=== PATIENT | male | born 1960 | race Caucasian/White ===

== ENCOUNTER → 2017-03-05 | Outpatient (CLI) | payer OTHER ==
[2017-03-05 08:03] LABS: ADD MAN DIFF? NO
[2017-03-05 08:18] LABS: BASO % 1 % (0-3); EOS # 0.1 x10^3/uL (0.0-0.7); EOS % 2 % (0-3); HEMATOCRIT 46.9 % (39.0-53.0); HEMOGLOBIN 16.1 g/dL (13.0-17.5); LYMPH # 1.9 x10^3/uL (1.0-4.8); LYMPH % 40 % (24-48); MEAN CORPUSCULAR HEMOGLOBIN 32 pg (25-35); MEAN CORPUSCULAR HGB CONC 34 g/dL (31-37); MEAN CORPUSCULAR VOLUME 92 fL (79-100); MONO # 0.4 x10^3/uL (0.0-1.1); MONO % 9 % (0-9); NEUT # 2.3 x10^3uL (1.8-7.7); NEUT % 49 % (31-73); PLATELET COUNT 216 x10^3/uL (140-400); RED BLOOD COUNT 5.08 x10^6/uL (4.30-5.70); RED CELL DISTRIBUTION WIDTH 13.1 % (11.5-14.5); WHITE BLOOD COUNT 4.8 x10^3/uL (4.0-11.0)
[2017-03-05 08:25] LABS: BILIRUBIN,URINE NEGATIVE (NEG); CLARITY,URINE CLEAR; COLOR,URINE YELLOW; GLUCOSE,URINE NEGATIVE (NEG); NITRITE,URINE NEGATIVE (NEG); PROTEIN,URINE NEGATIVE (NEG-TRACE); UROBILINOGEN,URINE 0.2 mg/dL (0.2 mg/dL)
[2017-03-05 08:29] LABS: ALK PHOS 86 U/L (46-116); ALT (SGPT) 31 U/L (16-63); ANION GAP 7 (6-14); AST (SGOT) 17 U/L (15-37); BLOOD UREA NITROGEN 15 mg/dL (8-26); BUN/CREATININE RATIO 15 (6-20); CALCIUM 8.8 mg/dL (8.5-10.1); CARBON DIOXIDE 28 mmol/L (21-32); CHLORIDE 100 mmol/L (98-107); CHOLESTEROL 249 mg/dL (0-200); GFR 77.9; GLUCOSE 107 mg/dL (70-99); HDLC 53 mg/dL (40-60); LDLC 175 mg/dL (0-100); NON-HDL CHOLESTEROL 196 mg/dL (0-129); POTASSIUM 4.2 mmol/L (3.5-5.1); SODIUM 135 mmol/L (136-145); TOTAL BILIRUBIN 0.6 mg/dL (0.2-1.0); TOTAL PROTEIN 8.2 g/dL (6.4-8.2); TRIGLYCERIDES 106 mg/dL (0-150); VLDLC 21 mg/dL (0-40)
[2017-03-05 08:31] LABS: CHOLESTEROL/HDL RATIO 4.7
[2017-03-05 08:50] LABS: FREE T4 0.83 ng/dL (0.76-1.46)
[2017-03-05 08:50] LABS: THYROID STIM HORMONE (TSH) 5.084 uIU/mL (0.358-3.74)
[2017-03-05 08:55] LABS: SQUAMOUS EPITHELIAL CELL,UR OCC /LPF
[2017-03-05 08:56] LABS: BACTERIA,URINE 0 /HPF (0-FEW); RBC,URINE 0 /HPF (0-2); WBC,URINE 0 /HPF (0-4)
[2017-03-05 09:11] LABS: VITAMIN-B12 383 pg/mL (247-911)
[2017-03-05 09:17] LABS: SEDIMENTATION RATE 5 (0-15)
[2017-03-05 09:25] LABS: PROSTATE SPECIFIC ANTIGEN 0.53 ng/mL (0.00-4.00)
[2017-03-05 11:49] LABS: GLUCOSE 52 mg/dL (70-99)
[2017-03-05 14:23] LABS: T3 TOTAL 124 ng/dL (71-180); THYROXINE 6.4 ug/dL (4.5-12.0)
[2017-03-06 07:33] LABS: HEMOGLOBIN A1C 5.3 % (4.8-5.6)
[2017-03-07 17:19] LABS: ANA INTERP Negative (.)
[2017-03-08 13:25] LABS: % FREE TESTOSTERONE 2.39 % (1.50-4.20); TESTOSTERONE FREE 9.15 ng/dL (5.00-21.00); TESTOSTERONE TOTAL 383 ng/dL (264-916)
== END | disposition home or self-care (01) ==
LOC: LAB 07:47
DX: Z00.01 Encounter for general adult medical examination with abnormal findings (principal); Z12.5 Encounter for screening for malignant neoplasm of prostate; R42 Dizziness and giddiness; R23.2 Flushing
CPT/HCPCS: 36415; 80053; 80061; 81001; 82306; 82533; 82607; 82947; 82950; 83036; 84402; 84403; 84436; 84439; 84443; 84480; 84481; 85025; 85651; 86038; G0103

== ENCOUNTER → 2017-05-16 | Outpatient (CLI) | payer OTHER ==
[~2017-05-16] MED LIST: SODIUM PHOSPHATES 19/7GM 133 ML ENEMA.
== END | disposition home or self-care (01) ==
LOC: RAD 07:44
DX: M25.562 Pain in left knee (principal)
CPT/HCPCS: 73562

== ENCOUNTER 2017-05-22 17:10 | Emergency (ER) | payer OTHER | END 2017-05-22 18:51 | disposition home or self-care (01) | LOC: ER 17:10 | DX: S00.83XA Contusion of other part of head, initial encounter (principal); M54.2 Cervicalgia; I10 Essential (primary) hypertension; Z88.0 Allergy status to penicillin; V59.40XA Driver of pick-up truck or van injured in collision with unspecified motor vehicles in traffic accident, initial encounter; Y93.I9 Activity, other involving external motion; Y92.410 Unspecified street and highway as the place of occurrence of the external cause | CPT/HCPCS: 70450; 72125; 99284-25 ==

== ENCOUNTER → 2017-07-23 | Outpatient (CLI) | payer OTHER ==
[2017-07-23 08:14] LABS: ALBUMIN 3.6 g/dL (3.4-5.0); ALBUMIN/GLOBULIN RATIO 0.9 (1.0-1.7); ALK PHOS 86 U/L (46-116); ALT (SGPT) 22 U/L (16-63); ANION GAP 8 (6-14); AST (SGOT) 14 U/L (15-37); BLOOD UREA NITROGEN 16 mg/dL (8-26); BUN/CREATININE RATIO 18 (6-20); CALCIUM 8.9 mg/dL (8.5-10.1); CARBON DIOXIDE 25 mmol/L (21-32); CHLORIDE 105 mmol/L (98-107); CHOLESTEROL 197 mg/dL (0-200); CREATININE 0.9 mg/dL (0.7-1.3); GFR 87.6; GLUCOSE 101 mg/dL (70-99); HDLC 42 mg/dL (40-60); LDLC 126 mg/dL (0-100); NON-HDL CHOLESTEROL 155 mg/dL (0-129); SODIUM 138 mmol/L (136-145); TOTAL BILIRUBIN 0.6 mg/dL (0.2-1.0); TOTAL PROTEIN 7.4 g/dL (6.4-8.2); TRIGLYCERIDES 146 mg/dL (0-150); VLDLC 29 mg/dL (0-40)
[2017-07-23 08:21] LABS: CHOLESTEROL/HDL RATIO 4.7
[2017-07-23 17:52] LABS: FREE T4 0.77 ng/dL (0.76-1.46)
[2017-07-23 17:52] LABS: THYROID STIM HORMONE (TSH) 4.805 uIU/mL (0.358-3.74)
[2017-07-24 02:19] LABS: T3 TOTAL 101 ng/dL (71-180)
[2017-07-24 02:19] LABS: THYROXINE 5.5 ug/dL (4.5-12.0)
== END | disposition home or self-care (01) ==
LOC: LAB 07:19
DX: E03.9 Hypothyroidism, unspecified (principal); E55.9 Vitamin D deficiency, unspecified; E78.5 Hyperlipidemia, unspecified; I10 Essential (primary) hypertension
CPT/HCPCS: 36415; 80053; 80061; 82306; 84436; 84439; 84443; 84480; 84481

== ENCOUNTER → 2018-10-31 | Outpatient (CLI) | payer OTHER ==
[2017-05-22 17:35] VITALS: BP 135/75
[~2018-10-31] MED LIST changes: +CALC200T23 PO; +PANT40TA77 PO; -SODIUM PHOSPHATES 19/7GM 133 ML ENEMA.
[2018-10-31 10:00] LABS: BASO % 1 % (0-3); EOS # 0.1 x10^3/uL (0.0-0.7); EOS % 2 % (0-3); HEMATOCRIT 43.5 % (39.0-53.0); HEMOGLOBIN 15.1 g/dL (13.0-17.5); LYMPH # 1.8 x10^3/uL (1.0-4.8); LYMPH % 39 % (24-48); MEAN CORPUSCULAR HEMOGLOBIN 33 pg (25-35); MEAN CORPUSCULAR HGB CONC 35 g/dL (31-37); MEAN CORPUSCULAR VOLUME 94 fL (79-100); MONO # 0.4 x10^3/uL (0.0-1.1); MONO % 9 % (0-9); NEUT # 2.3 x10^3/uL (1.8-7.7); NEUT % 49 % (31-73); PLATELET COUNT 206 x10^3/uL (140-400); RED BLOOD COUNT 4.64 x10^6/uL (4.30-5.70); RED CELL DISTRIBUTION WIDTH 13.3 % (11.5-14.5); WHITE BLOOD COUNT 4.6 x10^3/uL (4.0-11.0)
[2018-10-31 10:10] LABS: ALBUMIN 3.8 g/dL (3.4-5.0); ALBUMIN/GLOBULIN RATIO 1.1 (1.0-1.7); CALCIUM 8.9 mg/dL (8.5-10.1); GFR 77.3; POTASSIUM 4.9 mmol/L (3.5-5.1); TOTAL BILIRUBIN 0.4 mg/dL (0.2-1.0); TOTAL PROTEIN 7.4 g/dL (6.4-8.2)
[2018-10-31 10:11] LABS: CHOLESTEROL/HDL RATIO 5.2
[2018-10-31 17:10] LABS: T3 TOTAL 119 ng/dL (71-180)
[2018-11-01 00:11] LABS: HEMOGLOBIN A1C 5.6 % (4.8-5.6)
== END | disposition home or self-care (01) ==
LOC: LAB 09:10
PROVIDERS: ATTEND Nurse Practitioner
DX: Z13.1 Encounter for screening for diabetes mellitus (principal); E78.5 Hyperlipidemia, unspecified; E30.9 Disorder of puberty, unspecified; I10 Essential (primary) hypertension; W57.XXXA Bitten or stung by nonvenomous insect and other nonvenomous arthropods, initial encounter; Y93.89 Activity, other specified; Y92.89 Other specified places as the place of occurrence of the external cause; Y99.8 Other external cause status
CPT/HCPCS: 36415; 80053; 80061; 83036; 84436; 84443; 84480; 85025; 86617; 86618

== ENCOUNTER → 2019-02-19 | Outpatient (CLI) | payer OTHER ==
[2017-05-22 17:35] VITALS: BP 135/75
[2019-02-19 10:36] LABS: BASO % 1 % (0-3); EOS # 0.1 x10^3/uL (0.0-0.7); EOS % 2 % (0-3); HEMATOCRIT 44.2 % (39.0-53.0); HEMOGLOBIN 15.1 g/dL (13.0-17.5); LYMPH # 1.8 x10^3/uL (1.0-4.8); LYMPH % 37 % (24-48); MEAN CORPUSCULAR HEMOGLOBIN 31 pg (25-35); MEAN CORPUSCULAR HGB CONC 34 g/dL (31-37); MEAN CORPUSCULAR VOLUME 91 fL (79-100); MONO # 0.4 x10^3/uL (0.0-1.1); MONO % 9 % (0-9); NEUT # 2.6 x10^3/uL (1.8-7.7); NEUT % 52 % (31-73); PLATELET COUNT 244 x10^3/uL (140-400); RED BLOOD COUNT 4.85 x10^6/uL (4.30-5.70); RED CELL DISTRIBUTION WIDTH 12.9 % (11.5-14.5)
[2019-02-19 10:48] LABS: ALBUMIN 3.8 g/dL (3.4-5.0); ALBUMIN/GLOBULIN RATIO 1.1 (1.0-1.7); CALCIUM 8.9 mg/dL (8.5-10.1); GFR 77.3; POTASSIUM 4.2 mmol/L (3.5-5.1); TOTAL BILIRUBIN 0.5 mg/dL (0.2-1.0); TOTAL PROTEIN 7.3 g/dL (6.4-8.2)
[2019-02-19 10:49] LABS: CHOLESTEROL/HDL RATIO 5.5
[2019-02-19 10:58] LABS: FREE T4 0.91 ng/dL (0.76-1.46); THYROID STIM HORMONE (TSH) 3.239 uIU/mL (0.358-3.74)
--- NOTE | 2019-02-19 16:13 | RAD ---
BRAIN W/O CONTRAST History: Headache. Technique: Multiplanar, multi sequential MR imaging was performed of the brain without contrast. Comparison: CT May 22, 2017 brain MRI August 06, 2015 Findings: No acute infarct. No intracranial hemorrhage. No mass effect. No hydrocephalus. Mild foci of T2/FLAIR hyperintensities within the hemispheric white matter including the left cerebellum, unchanged compared to prior. Imaged orbits are unremarkable. Imaged paranasal sinuses and mastoid air cells are clear. Impression: 1. No acute intracranial abnormality. 2. Unchanged mild nonspecific cerebral hemispheric white matter signal abnormalities including the left cerebellum. Differential considerations include migraine headaches, demyelinating disease, sequelae of chronic microvascular ischemia, or vasculitis. Electronically signed by: Evens Pierre DO (02/19/2019 4:10 PM) [facility] [id number]
--- NOTE | 2019-02-19 16:19 | RAD ---
CERVICAL SPINE WO CONTRAST History: Neck pain Technique: Multiplanar, multi sequential noncontrast MR imaging was performed of the cervical spine. Comparison: CT May 22, 2017 Findings: Normal vertebral body height and alignment. No fracture. No pathologic signal abnormality within the cervical spinal cord. T2/STIR hyperintense signal around the within the left cerebellum see dedicated brain MRI for further details. C2-C3 Small posterior disc osteophyte complex. Indention of ventral thecal sac. No canal narrowing. Uncovertebral and facet arthropathy. No neuroforaminal narrowing. C3-C4: Disc osteophyte complex. Partial effacement of ventral CSF space. Dorsal CSF spaces preserved. Minimal canal narrowing. Mild cord flattening. Uncovertebral and facet arthropathy. Moderate right and mild left neuroforaminal narrowing. C4-C5: Posterior disc osteophyte complex. No canal narrowing. Minimal cord flattening. Uncovertebral and facet arthropathy. Mild right neuroforaminal narrowing. No left neural foraminal narrowing. C5-C6: Posterior disc osteophyte complex. Partial effacement of ventral CSF space. Dorsal CSF spaces preserved. Minimal cord flattening. Uncovertebral and facet arthropathy. Severe left and moderate right neuroforaminal narrowing. C6-C7: Disc osteophyte complex. No canal narrowing. Uncovertebral and facet arthropathy. Moderate left and mild right neuroforaminal narrowing. C7-T1: No canal or neuroforaminal narrowing. Facet arthropathy. Impression: 1. Moderate multilevel cervical spondylosis most prominent C3-C4 and C5-C6. 2. Multilevel neural foraminal narrowing most prominent C5-C6. Electronically signed by: Evens Pierre DO (02/19/2019 4:16 PM) [email or web address]
[2019-02-19 23:08] LABS: HEMOGLOBIN A1C 5.6 % (4.8-5.6)
[2019-02-28 08:48] LABS: BILIRUBIN,URINE NEGATIVE (NEG); CLARITY,URINE CLEAR; COLOR,URINE YELLOW; NITRITE,URINE NEGATIVE (NEG); PH,URINE 5.5; PROTEIN,URINE NEGATIVE (NEG-TRACE); UROBILINOGEN,URINE 0.2 mg/dL (0.2 mg/dL)
[2019-02-28 09:00] LABS: BACTERIA,URINE 0 /HPF (0-FEW); RBC,URINE 0 /HPF (0-2); WBC,URINE OCC /HPF (0-4)
== END | disposition home or self-care (01) ==
LOC: MRI 07:54
PROVIDERS: ATTEND Family Medicine
DX: Z00.00 Encounter for general adult medical examination without abnormal findings (principal); M47.812 Spondylosis without myelopathy or radiculopathy, cervical region; M12.88 Other specific arthropathies, not elsewhere classified, other specified site; M48.02 Spinal stenosis, cervical region; M25.78 Osteophyte, vertebrae; R90.82 White matter disease, unspecified; E03.9 Hypothyroidism, unspecified; I10 Essential (primary) hypertension; E55.9 Vitamin D deficiency, unspecified
CPT/HCPCS: 36415; 70551; 72141; 80053; 80061; 81001; 82306; 83036; 84153; 84439; 84443; 84480; 85025; 85651; G0103

== ENCOUNTER 2019-08-11 19:31 | Emergency (ER) | payer OTHER ==
[~2019-08-11] VITALS: Ht 175.3 cm; Wt 103.0 kg
[2019-08-11 20:11] LABS: BASO % 1 % (0-3); EOS # 0.1 x10^3/uL (0.0-0.7); EOS % 2 % (0-3); HEMATOCRIT 42.8 % (39.0-53.0); HEMOGLOBIN 15.2 g/dL (13.0-17.5); LYMPH # 2.2 x10^3/uL (1.0-4.8); LYMPH % 36 % (24-48); MEAN CORPUSCULAR HEMOGLOBIN 33 pg (25-35); MEAN CORPUSCULAR HGB CONC 36 g/dL (31-37); MEAN CORPUSCULAR VOLUME 91 fL (79-100); MONO # 0.4 x10^3/uL (0.0-1.1); MONO % 7 % (0-9); NEUT # 3.4 x10^3/uL (1.8-7.7); NEUT % 55 % (31-73); PLATELET COUNT 228 x10^3/uL (140-400); RED BLOOD COUNT 4.69 x10^6/uL (4.30-5.70); RED CELL DISTRIBUTION WIDTH 12.9 % (11.5-14.5); WHITE BLOOD COUNT 6.1 x10^3/uL (4.0-11.0)
[2019-08-11 20:21] LABS: PROTHROMBIN TIME PATIENT 12.2 SEC (11.7-14.0)
--- NOTE | 2019-08-11 20:23 | RAD ---
Study: CR CHEST PA LATERAL Indication: Midsternal pain for the past 3 months. Comparison: 01/18/2015 Findings: Similar configuration of the cardiomediastinal silhouette which is at the upper limits for normal in size. Unchanged melba. No pneumothorax or layering effusion. No confluent infiltrate. Mildly prominent interstitial markings have not significant changed. Impression: No acute radiographic abnormality of the chest. No significant change from 01/18/2015. Electronically signed by: SHERICE CLOUD MD (08/11/2019 8:20 PM) [id number]
[2019-08-11 20:29] LABS: CREATININE 1.2 mg/dL (0.7-1.3); GFR 62.4
[2019-08-11 20:32] LABS: ALBUMIN 3.6 g/dL (3.4-5.0); ALBUMIN/GLOBULIN RATIO 1.1 (1.0-1.7); TOTAL BILIRUBIN 0.3 mg/dL (0.2-1.0); TOTAL PROTEIN 6.9 g/dL (6.4-8.2)
[2019-08-11] MEDS ORDERED: SUCR1TAB35 PO (21:07)
[2019-08-11] MEDS ORDERED: FAMO-63 PO (21:07)
--- NOTE | 2019-08-11 21:07 | PHYS DOC ---
Past Medical History Past Medical History: Hypertension Past Surgical History: Other Additional Past Surgical Histo: right labrium repair Smoking Status: Former Smoker Alcohol Use: Heavy Drug Use: None General Adult EDM: Chief Complaint: GI PROBLEM HPI: HPI: Patient is a 59 year old male presents to the ED with a chief complaint of epigastric chest pain that is been present for the last 2 to 3 months. Patient states that he went to his PCP today and was told to come to the ER. Patient states that the pain is in the epigastric region with radiating up his left chest. Patient states that his last cardiac evaluation was a very long time ago. Review of Systems: Review of Systems: Constitutional: Denies fever or chills. [] Eyes: Denies change in visual acuity. [] HENT: Denies nasal congestion or sore throat. [] Respiratory: Denies cough or shortness of breath. [] Cardiovascular: Denies chest pain or edema. [] GI: Complains of epigastric abdominal tenderness. [] : Denies dysuria. [] Neurologic: Denies headache, focal weakness or sensory changes. [] Heart Score: HEART Score for Chest Pain: HEART Score for Chest Pain Response (Comments) Value History Slighlty/Non-Suspicious 0 ECG Normal 0 Age >45 - < 65 1 Risk Factors 1 or 2 Risk Factors 1 Troponin < Normal Limit 0 Total 2 Risk Factors: Risk Factors: DM, Current or recent (<one month) smoker, HTN, HLP, family history of CAD, obesity. Risk Scores: Score 0 - 3: 2.5% MACE over next 6 weeks - Discharge Home Score 4 - 6: 20.3% MACE over next 6 weeks - Admit for Clinical Observation Score 7 - 10: 72.7% MACE over next 6 weeks - Early Invasive Strategies Allergies: Allergies: Allergies Coded Allergies Type Severity Reaction Last Updated Verified Penicillins Allergy Intermediate hives and rash 01/18/15 Yes Physical Exam: PE: Constitutional: Well developed, well nourished, no acute distress, non-toxic appearance. [] HENT: Normocephalic, atraumatic Eyes: EOMI Neck: Normal range of motion, Supple Cardiovascular:Heart rate regular rhythm Lungs & Thorax: Bilateral breath sounds clear to auscultation [] Abdomen: Epigastric abdominal tenderness Extremities: No tenderness, ROM intact Neurologic: Alert and oriented X 3 Current Patient Data: Labs: Laboratory Tests Test 08/11/19 19:58 White Blood Count 6.1 x10^3/uL (4.0-11.0) Red Blood Count 4.69 x10^6/uL (4.30-5.70) Hemoglobin 15.2 g/dL (13.0-17.5) Hematocrit 42.8 % (39.0-53.0) Mean Corpuscular Volume 91 fL (79-100) Mean Corpuscular Hemoglobin 33 pg (25-35) Mean Corpuscular Hemoglobin Concent 36 g/dL (31-37) Red Cell Distribution Width 12.9 % (11.5-14.5) Platelet Count 228 x10^3/uL (140-400) Neutrophils (%) (Auto) 55 % (31-73) Lymphocytes (%) (Auto) 36 % (24-48) Monocytes (%) (Auto) 7 % (0-9) Eosinophils (%) (Auto) 2 % (0-3) Basophils (%) (Auto) 1 % (0-3) Neutrophils # (Auto) 3.4 x10^3/uL (1.8-7.7) Lymphocytes # (Auto) 2.2 x10^3/uL (1.0-4.8) Monocytes # (Auto) 0.4 x10^3/uL (0.0-1.1) Eosinophils # (Auto) 0.1 x10^3/uL (0.0-0.7) Basophils # (Auto) 0.0 x10^3/uL (0.0-0.2) Prothrombin Time 12.2 SEC (11.7-14.0) Prothrombin Time INR 0.9 (0.8-1.1) Sodium Level 138 mmol/L (136-145) Potassium Level 4.0 mmol/L (3.5-5.1) Chloride Level 101 mmol/L (98-107) Carbon Dioxide Level 29 mmol/L (21-32) Anion Gap 8 (6-14) Blood Urea Nitrogen 18 mg/dL (8-26) Creatinine 1.2 mg/dL (0.7-1.3) Estimated GFR (Cockcroft-Gault) 62.4 BUN/Creatinine Ratio 15 (6-20) Glucose Level 122 mg/dL (70-99) H Calcium Level 9.0 mg/dL (8.5-10.1) Total Bilirubin 0.3 mg/dL (0.2-1.0) Aspartate Amino Transferase (AST) 22 U/L (15-37) Alanine Aminotransferase (ALT) 35 U/L (16-63) Alkaline Phosphatase 85 U/L (46-116) Troponin I Quantitative < 0.017 ng/mL (0.000-0.055) Total Protein 6.9 g/dL (6.4-8.2) Albumin 3.6 g/dL (3.4-5.0) Albumin/Globulin Ratio 1.1 (1.0-1.7) Lipase 153 U/L (73-393) Laboratory Tests 08/11/19 19:58 Laboratory Tests 08/11/19 19:58 Vital Signs: Vital Signs Date Time Temp Pulse Resp B/P (MAP) Pulse Ox O2 Delivery O2 Flow Rate FiO2 08/11/19 19:50 98.6 75 16 126/70 (88) 96 Room Air 98.6 EKG: EKG: [EKG interpretation: 19: 49 on 08/11/2019 HR: 72 Sinus rhythm Regular intervals Normal axis Nonspecific ST changes No STEMI ] Radiology/Procedures: Radiology/Procedures: [] Impression: CXR Impression: No acute radiographic abnormality of the chest. No significant change from 01/18/2015. Course & Med Decision Making: Course & Med Decision Making Pertinent Labs and Imaging studies reviewed. (See chart for details) EKG does not show any acute changes. Labs are within normal limits. Troponin is negative. Chest x-ray does not show any acute changes. Do not need to repeat troponin as patient has had this pain for the last 2 months. Patient was discharged home on Pepcid and Carafate. Discussed results and plan of care with patient. Patient is instructed to follow up with PCP in one to 2 days. Appropriate discharge instructions given to patient to return to the ED or to seek immediate medical evaluation. Patient is instructed to return to the ED if symptoms worsen or if any concerns. Dragon Disclaimer: Dragon Disclaimer: This electronic medical record was generated, in whole or in part, using a voice recognition dictation system. Departure Departure Impression: Primary Impression: Chest pain Additional Impression: GERD (gastroesophageal reflux disease) Disposition: 01 HOME, SELF-CARE Condition: STABLE Referrals: RAUDEL PIEDRA (PCP) Patient Instructions: Chest Pain (Nonspecific), Gastroesophageal Reflux Disease, Adult Additional Instructions: Discussed results and plan of care with patient. Patient is instructed to follow up with PCP in one to 2 days. Appropriate discharge instructions given to patient to return to the ED or to seek immediate medical evaluation. Patient is instructed to return to the ED if symptoms worsen or if any concerns. Scripts Sucralfate (CARAFATE) 1 Gm Tablet 1 TAB PO BID for 30 Days, #60 TAB 0 Refills Prov: MINERVA LEMUS DO 08/11/19 Famotidine (PEPCID) 20 Mg Tablet 20 MG PO HS, #30 TAB Prov: MINERVA LEMUS DO 08/11/19 Justicifation of Admission Dx: Justifications for Admission: Justification of Admission Dx: MINERVA Penn DO Aug 11, 2019 21:07
[2019-08-11 21:30] VITALS: BP 139/75
--- NOTE | 2019-08-12 10:29 | EKG ---
[facility] [address] [place] [address] Test Date: 2019-08-11 Test Time: 19:49:32 Pat Name: SARA BOWIE Department: Room: Gender: M Legal Analyst: : 1960 Requested By: MINERVA LEMUS Order Number: [id number] [place] MD: Measurements Intervals [place] Rate: 72 P: 36 MO: 178 QRS: 23 QRSD: 98 T: 58 QT: 352 QTc: 387 Interpretive Statements SINUS RHYTHM NORMAL ECG RI6.02 No previous ECG available for comparison
== END 2019-08-11 21:35 | disposition home or self-care (01) ==
LOC: ER 19:31
DX: R07.89 Other chest pain (principal); K21.9 Gastro-esophageal reflux disease without esophagitis; I10 Essential (primary) hypertension; F10.20 Alcohol dependence, uncomplicated; Y90.9 Presence of alcohol in blood, level not specified; Z87.891 Personal history of nicotine dependence; Z88.0 Allergy status to penicillin
CPT/HCPCS: 36415; 71046; 80053; 83690; 84484; 85025; 85610; 93005; 99285-25

== ENCOUNTER → 2020-05-11 | Outpatient (CLI) | payer OTHER ==
[~2020-05-11] MED LIST changes: +FAMO-63 PO; +SUCR1TAB35 PO
[2020-05-11 11:38] LABS: BASO % 1 % (0-3); EOS # 0.1 x10^3/uL (0.0-0.7); EOS % 2 % (0-3); HEMATOCRIT 43.6 % (39.0-53.0); HEMOGLOBIN 15.1 g/dL (13.0-17.5); LYMPH # 2.2 x10^3/uL (1.0-4.8); LYMPH % 45 % (24-48); MEAN CORPUSCULAR HEMOGLOBIN 31 pg (25-35); MEAN CORPUSCULAR HGB CONC 35 g/dL (31-37); MEAN CORPUSCULAR VOLUME 90 fL (79-100); MONO # 0.4 x10^3/uL (0.0-1.1); MONO % 8 % (0-9); NEUT # 2.2 x10^3/uL (1.8-7.7); NEUT % 44 % (31-73); PLATELET COUNT 215 x10^3/uL (140-400); RED BLOOD COUNT 4.83 x10^6/uL (4.30-5.70); RED CELL DISTRIBUTION WIDTH 13.2 % (11.5-14.5); WHITE BLOOD COUNT 4.9 x10^3/uL (4.0-11.0)
[2020-05-11 11:47] LABS: BILIRUBIN,URINE NEGATIVE (NEG); CLARITY,URINE CLEAR; COLOR,URINE YELLOW; NITRITE,URINE NEGATIVE (NEG); PH,URINE 5.5 (<5.0-8.0); PROTEIN,URINE NEGATIVE (NEG-TRACE); UROBILINOGEN,URINE 0.2 mg/dL (0.2 mg/dL)
[2020-05-11 11:51] LABS: BACTERIA,URINE 0 /HPF (0-FEW); RBC,URINE 0 /HPF (0-2); WBC,URINE 0 /HPF (0-4)
[2020-05-11 11:58] LABS: ALBUMIN 3.7 g/dL (3.4-5.0); ALBUMIN/GLOBULIN RATIO 0.9 (1.0-1.7); CALCIUM 8.8 mg/dL (8.5-10.1); POTASSIUM 4.5 mmol/L (3.5-5.1); TOTAL BILIRUBIN 0.4 mg/dL (0.2-1.0); TOTAL PROTEIN 7.7 g/dL (6.4-8.2)
[2020-05-11 12:00] LABS: CHOLESTEROL/HDL RATIO 5.6
[2020-05-11 12:11] LABS: FREE T4 0.76 ng/dL (0.76-1.46); THYROID STIM HORMONE (TSH) 4.88 uIU/mL (0.358-3.74)
[2020-05-11 22:12] LABS: HEMOGLOBIN A1C 5.7 % (4.8-5.6)
== END ==
LOC: LAB 11:09
PROVIDERS: ATTEND Family Medicine
DX: Z00.00 Encounter for general adult medical examination without abnormal findings (principal); E03.9 Hypothyroidism, unspecified; E55.9 Vitamin D deficiency, unspecified; I10 Essential (primary) hypertension
CPT/HCPCS: 36415; 80053; 80061; 81001; 82306; 83036; 84153; 84439; 84443; 84480; 85025; G0103

== ENCOUNTER → 2020-07-06 | Outpatient (CLI) | payer OTHER ==
[2020-07-06 17:26] LABS: FREE T4 0.8 ng/dL (0.76-1.46); THYROID STIM HORMONE (TSH) 6.604 uIU/mL (0.358-3.74)
== END ==
LOC: LAB 16:03
PROVIDERS: ATTEND Family Medicine
DX: E03.9 Hypothyroidism, unspecified (principal)
CPT/HCPCS: 36415; 84439; 84443; 84480

== ENCOUNTER 2020-07-14 18:29 | Emergency (ER) | payer OTHER ==
[~2020-07-14] VITALS: Ht 175.3 cm; Wt 104.7 kg
--- NOTE | 2020-07-14 19:46 | RAD ---
EXAM: 3 views of the left ankle DATE: 07/14/2020 7:35 PM INDICATION: Reason: pain / Spl. Instructions: / History: COMPARISON: No Prior FINDINGS: No acute fracture or dislocation. Ankle mortise is congruent. Talar dome is intact. Talonavicular and naviculocuneiform joint degenerative changes are seen. Small calcaneal enthesophytes. Os trigonum. M ild soft tissue swelling overlying lateral malleolus and anterior ankle. IMPRESSION: 1. No acute fracture or dislocation. 2. Soft tissue swelling about the left ankle 3. Multifocal degenerative changes. Electronically signed by: Rajinder Correa MD (07/14/2020 7:43 PM) [facility]
[2020-07-14] MEDS ORDERED: CYCLOBENZAPRINE 10 MG TABLET. PO ONE (20:15)
[2020-07-14] MEDS ORDERED: HYDROcodone/APAP 5/325MG 1 TAB TABLET PO ONE (20:15)
--- NOTE | 2020-07-14 20:54 | RAD ---
Examination: LEFT LOWER EXTREMITY - UNILATERAL VENOUS DOPPLER Technique: Ultrasound evaluation of the left lower extremity was performed from the groin to the uppe r calf with ken scale, spectral and color doppler evaluation. Indication: Leg swelling Comparison: None Findings: There is normal venous flow and compressibility of left common femoral vein, femoral vein, popliteal vein, and visualized proximal calf veins. Impression: No evidence for deep vein thrombosis of left lower extremity from the level of the calf v eins to the groins. Electronically signed by: Rajinder Correa MD (07/14/2020 8:51 PM) [facility]
[2020-07-14 21:11] VITALS: BP 133/85
--- NOTE | 2020-07-14 21:27 | PHYS DOC ---
Past Medical History Past Medical History: Hypertension, Hypothyroid Past Surgical History: Other Additional Past Surgical Histo: right labrium repair Smoking Status: Former Smoker Alcohol Use: Heavy Drug Use: None General Adult EDM: Chief Complaint: LOWER EXT PAIN HPI: HPI: Patient is a 60 year old male with history of hypertension presenting today complaining of contusion to the left ankle with moderate pain, symptoms began 2 weeks ago after a heavy bowl fell on the ankle. Patient states the pain has gotten worse in the last 2 weeks. States the pain is worse on weightbearing. Describes the pain as throbbing and intermittent. Also complaining of bruising to the inner foot and lower thigh. Denies being on any blood thinners. Review of Systems: Review of Systems: Constitutional: Denies fever or chills. [] Musculoskeletal: Reports left ankle pain with bruising to the left lower extremity Integument: Denies rash. [] Neurologic: Denies headache, focal weakness or sensory changes. [] Psychiatric: Denies depression or anxiety. [] Heart Score: C/O Chest Pain: N/A Risk Factors: Risk Factors: DM, Current or recent (<one month) smoker, HTN, HLP, family history of CAD, obesity. Risk Scores: Score 0 - 3: 2.5% MACE over next 6 weeks - Discharge Home Score 4 - 6: 20.3% MACE over next 6 weeks - Admit for Clinical Observation Score 7 - 10: 72.7% MACE over next 6 weeks - Early Invasive Strategies Current Medications: Current Medications Medications (Trade) Dose Ordered Sig/Capri Start Time Stop Time Status Last Admin Dose Admin Acetaminophen/ Hydrocodone Bitart (Lortab 5/325) 2 tab 1X ONCE 07/14/20 20:15 07/14/20 20:16 DC 07/14/20 20:02 2 TAB Cyclobenzaprine HCl (Flexeril) 10 mg 1X ONCE 07/14/20 20:15 07/14/20 20:16 DC 07/14/20 20:01 10 MG Allergies: Allergies: Allergies Coded Allergies Type Severity Reaction Last Updated Verified Penicillins Allergy Intermediate hives and rash 01/18/15 Yes Physical Exam: PE: Constitutional: Well developed, well nourished, no acute distress, non-toxic appearance. [] Skin: Warm, dry, no erythema, no rash. [] Back: No tenderness, no CVA tenderness. [] Extremities: Left ankle with mild swelling on the lateral aspect. There is bruising on the medial aspect of the foot and medial posterior thigh. Full ROM to the LLE. +1 left pedal. Cap refill <2 seconds to the toes of the left toes. Neurologic: Alert and oriented X 3, normal motor function, normal sensory function, no focal deficits noted. [] Psychologic: Affect normal, judgement normal, mood normal. [] Current Patient Data: Vital Signs: Vital Signs Date Time Temp Pulse Resp B/P (MAP) Pulse Ox O2 Delivery O2 Flow Rate FiO2 07/14/20 20:40 98 Room Air 07/14/20 19:15 98.5 88 18 143/90 (107) 98.5 EKG: EKG: [] Radiology/Procedures: Radiology/Procedures: []PROCEDURE: VENOUS LOWER EXTREMITY LEFT Examination: LEFT LOWER EXTREMITY - UNILATERAL VENOUS DOPPLER Technique: Ultrasound evaluation of the left lower extremity was performed from the groin to the upper calf with ken scale, spectral and color doppler evaluation. Indication: Leg swelling Comparison: None Findings: There is normal venous flow and compressibility of left common femoral vein, femoral vein, popliteal vein, and visualized proximal calf veins. Impression: No evidence for deep vein thrombosis of left lower extremity from the level of the calf veins to the groins. Electronically signed by: Rajinder Correa MD (07/14/2020 8:51 PM) [facility] DICTATED and SIGNED BY: RAJINDER CORREA MD DATE: 07/14/[id number] 0 PROCEDURE: ANKLE LEFT 3V EXAM: 3 views of the left ankle DATE: 07/14/2020 7:35 PM INDICATION: Reason: pain / Spl. Instructions: / History: COMPARISON: No Prior FINDINGS: No acute fracture or dislocation. Ankle mortise is congruent. Talar dome is intact. Talonavicular and naviculocuneiform joint degenerative changes are seen. Small calcaneal enthesophytes. Os trigonum. Mild soft tissue swelling overlying lateral malleolus and anterior ankle. IMPRESSION: 1. No acute fracture or dislocation. 2. Soft tissue swelling about the left ankle 3. Multifocal degenerative changes. Electronically signed by: Rajinder Correa MD (07/14/2020 7:43 PM) [facility] DICTATED and SIGNED BY: RAJINDER CORREA MD DATE: 07/14/20 [id number] 0 Course & Med Decision Making: Course & Med Decision Making Pertinent Labs and Imaging studies reviewed. (See chart for details) This is a 60 year old male with history of hypertension presenting today complaining of contusion to the left ankle with moderate pain, symptoms began 2 weeks ago after a heavy bowl fell on the ankle. Left ankle xrays are negative. Negative for DVT. D/c to home. F/u with PCP. Austen Disclaimer: Austen Disclaimer: This electronic medical record was generated, in whole or in part, using a voice recognition dictation system. Departure Departure Impression: Primary Impression: Contusion of left ankle Qualified Codes: S90.02XA - Contusion of left ankle, initial encounter Additional Impression: Superficial bruising of lower leg Qualified Codes: S80.12XA - Contusion of left lower leg, initial encounter Disposition: HOME / SELF CARE / HOMELESS Condition: STABLE Referrals: RAUDEL PIEDRA (PCP) Follow-up in 1 to 2 weeks Patient Instructions: Contusion, [id number] Additional Instructions: You were seen for contusion of the left ankle, we did x-rays of your left ankle which are negative, we did venous Doppler of the left lower extremity which is negative for blood clot. Please follow-up with your primary care doctor in 1 to 2 weeks. Continue to ice and elevate the affected extremity BRIA MCKEON APRN Jul 14, 2020 21:27
== END 2020-07-14 21:44 | disposition home or self-care (01) ==
LOC: ER 18:29
DX: S90.02XA Contusion of left ankle, initial encounter (principal); S80.12XA Contusion of left lower leg, initial encounter; I10 Essential (primary) hypertension; E03.9 Hypothyroidism, unspecified; Z87.891 Personal history of nicotine dependence; Z88.0 Allergy status to penicillin; W18.39XA Other fall on same level, initial encounter; Y93.89 Activity, other specified; Y92.89 Other specified places as the place of occurrence of the external cause; Y99.8 Other external cause status
CPT/HCPCS: 73610; 93971; 99284

== ENCOUNTER → 2021-04-07 | Outpatient (CLI) | payer OTHER ==
[2021-04-07 11:42] LABS: BASO % 1 % (0-3); EOS # 0.1 x10^3/uL (0.0-0.7); EOS % 2 % (0-3); HEMATOCRIT 45.9 % (39.0-53.0); HEMOGLOBIN 15.2 g/dL (13.0-17.5); LYMPH # 1.8 x10^3/uL (1.0-4.8); LYMPH % 34 % (24-48); MEAN CORPUSCULAR HEMOGLOBIN 31 pg (25-35); MEAN CORPUSCULAR HGB CONC 33 g/dL (31-37); MEAN CORPUSCULAR VOLUME 92 fL (79-100); MONO # 0.4 x10^3/uL (0.0-1.1); MONO % 7 % (0-9); NEUT % 57 % (31-73); PLATELET COUNT 254 x10^3/uL (140-400); RED BLOOD COUNT 4.98 x10^6/uL (4.30-5.70); RED CELL DISTRIBUTION WIDTH 13.7 % (11.5-14.5); WHITE BLOOD COUNT 5.3 x10^3/uL (4.0-11.0)
[2021-04-07 12:02] LABS: ALBUMIN 3.9 g/dL (3.4-5.0); CALCIUM 9.2 mg/dL (8.5-10.1); CHOLESTEROL/HDL RATIO 4.9; CREATININE 0.9 mg/dL (0.7-1.3); GFR 86.7; POTASSIUM 4.1 mmol/L (3.5-5.1); TOTAL BILIRUBIN 0.5 mg/dL (0.2-1.0)
[2021-04-07 12:21] LABS: BILIRUBIN,URINE NEGATIVE (NEG); CLARITY,URINE CLEAR; COLOR,URINE YELLOW; PROTEIN,URINE NEGATIVE (NEG-TRACE)
[2021-04-07 12:22] LABS: BACTERIA,URINE 0 /HPF (0-FEW); NITRITE,URINE NEGATIVE (NEG); RBC,URINE 0 /HPF (0-2); UROBILINOGEN,URINE 0.2 mg/dL (0.2 mg/dL)
[2021-04-07 12:41] LABS: FREE T4 1.09 ng/dL (0.76-1.46); THYROID STIM HORMONE (TSH) 1.517 uIU/mL (0.358-3.74)
[2021-04-08 02:09] LABS: HEMOGLOBIN A1C 5.9 % (4.8-5.6)
[2021-04-08 14:18] LABS: VITAMIN D25(OH)TOTAL 52.1 ng/mL (30.0-100.0)
== END ==
LOC: LAB 10:30
PROVIDERS: ATTEND Family Medicine
DX: Z00.00 Encounter for general adult medical examination without abnormal findings (principal); E55.9 Vitamin D deficiency, unspecified; I10 Essential (primary) hypertension; E03.8 Other specified hypothyroidism
CPT/HCPCS: 36415; 80053; 80061; 81001; 82306; 83036; 84439; 84443; 84480; 85025; G0103